=== PATIENT | male | born 1960 | race Two or more races ===

== ENCOUNTER 2017-04-14 15:54 | Inpatient (IN) | payer OTHER ==
[2017-04-14 16:11] VITALS: BMI 19.8
[2017-04-14] MEDS ORDERED: predniSONE 20 MG TABLET (UD) PO ONE (16:34)
[2017-04-14] MEDS ORDERED: ALBUTEROL SO4 2.5/IPRATROPIUM 0.5 INH SOL 3 ML VIAL.NEB. NEB ONE (16:41)
--- NOTE | 2017-04-14 16:46 | PDOC ---
History of Present Illness - General Chief Complaint: Shortness of Breath Stated Complaint: SOB, PCP SENT Time Seen by Provider: 04/14/17 16:23 History Source: Patient Exam Limitations: No Limitations - History of Present Illness Initial Comments: 04/14/17 16:40 Patient is a 56M with history of asthma and bowel resection here today complaining of shortness of breath for the past week, worsening especially in the past 2 days. He is also complaining of associated fevers, chills, nausea, wheezing and cough. He was sent in to be admitted by Dr Mcintyre for respiratory distress, with saturations reported in the low 80s and high 70s. He is also complaining of pleuritic chest pain. He reports that he is an active smoker, but refuses to say how much he smokes everyday. He denies history of blood clots , recent travel and leg pain. Past History - Past Medical History Allergies/Adverse Reactions: Allergies Allergy/AdvReac Type Severity Reaction Status Date / Time levofloxacin [From Levaquin] Allergy Verified 04/14/17 17:02 peanut Allergy Difficulty Verified 04/14/17 17:02 Breathing strawberry [[place]] Allergy Verified 04/14/17 17:02 Home Medications: Ambulatory Orders Montelukast Na [Singulair -] 10 mg PO HS 04/14/17 Anemia: No Asthma: Yes Cancer: No Cardiac Disorders: No CVA: No COPD: Yes CHF: No Dementia: No Diabetes: No GI Disorders: No Disorders: No HTN: No Hypercholesterolemia: No Liver Disease: No Seizures: No Thyroid Disease: No - Surgical History Abdominal Surgery: Yes ("10 FEET OF COLON REMOVED-UNSURE WHY") Appendectomy: Yes - Immunization History Immunization Up to Date: Yes - Suicide/Smoking/Psychosocial Hx Smoking Status: Yes Smoking History: Never smoked Have you smoked in the past 12 months: Yes Number of Cigarettes Smoked Daily: 0 Information on smoking cessation initiated: No 'Breaking Loose' booklet given: 01/12/14 Hx Alcohol Use: No Drug/Substance Use Hx: No Substance Use Type: Cocaine, Opiates Hx Substance Use Treatment: No Review of Systems - Review of Systems Comments:: 04/14/17 16:45 GENERAL/CONSTITUTIONAL: Positive for fevers, chills and weakness. HEAD, EYES, EARS, NOSE AND THROAT: No change in vision. No ear pain or discharge. No sore throat. CARDIOVASCULAR: Positive for chest pain and shortness of breath. RESPIRATORY: Positive for cough and wheezing. Negative for hemoptysis. GASTROINTESTINAL: Positive for nausea. Negative for vomiting, diarrhea or constipation. GENITOURINARY: No dysuria, frequency, or change in urination. SKIN: No rash NEUROLOGIC: Positive for headache. Negative for vertigo, loss of consciousness, or change in strength/sensation. ENDOCRINE: No increased thirst. No abnormal weight change HEMATOLOGIC/LYMPHATIC: No anemia, easy bleeding, or history of blood clots. ALLERGIC/IMMUNOLOGIC: No hives or skin allergy. *Physical Exam - Vital Signs Last Vital Signs Temp Pulse Resp BP Pulse Ox 100.9 F H 114 H 22 134/81 88 L 04/14/17 16:07 04/14/17 16:07 04/14/17 16:07 04/14/17 16:07 04/14/17 16:07 - Physical Exam Comments: 04/14/17 16:46 GENERAL: Awake, alert, and fully oriented, in moderate distress, smells of smoke HEAD: No signs of trauma, normocephalic, atraumatic EYES: PERRLA, EOMI, sclera anicteric, conjunctiva clear ENT: Auricles normal inspection, hearing grossly normal, nares patent, oropharynx clear without exudates. Moist mucosa NECK: Normal ROM, supple, no lymphadenopathy, JVD, or masses LUNGS: In moderate respiratory distress, diffuse wheezing in all lung celestin, wheezing audible without stethoscope, moving air in all lung celestin, tachypneic HEART: Tachycardic, normal rhythm, normal S1 and S2, no murmurs, rubs or gallops , peripheral pulses normal and equal bilaterally. ABDOMEN: Soft, nontender, normoactive bowel sounds. No guarding, no rebound. No masses EXTREMITIES: Normal inspection, Normal range of motion, no edema. No clubbing or cyanosis. NEUROLOGICAL: Cranial nerves II through XII grossly intact. Normal speech, no focal sensorimotor deficits SKIN: Warm, Dry, normal turgor, no rashes or lesions noted. ED Treatment Course - LABORATORY CBC & Chemistry Diagram: 04/14/17 17:00 04/14/17 17:00 - RADIOLOGY Radiology Studies Ordered: Category Date Time Status CHEST X-RAY PORTABLE* [RAD] Stat Radiology 04/14/17 16:33 Ordered Medical Decision Making - Medical Decision Making 04/14/17 16:48 Patient is a 56M with history of asthma and bowel resection here today with respiratory distress. Tachycardic, tachypneic, febrile. Vital signs otherwise stable. Septic workup initiated. Differential diagnosis includes, but is not limited to: COPD exacerbation, pneumonia, bronchitis. Will treat with fluids, ceftriaxone and azithromycin. 04/14/17 17:03 EKG shows sinus tachycardia with atrial enlargement and left anterior fascicular block. Rate = 109. QTc 436. No ST elevation, no contiguous t-wave inverions, no st depression. 04/14/17 17:34 Laboratory Tests 04/14/17 17:00 WBC 12.6 H Hgb 14.9 D Hct 44.7 D Plt Count 228 CBC shows leukocytosis. 04/14/17 18:09 Laboratory Tests 04/14/17 17:20 VBG pH 7.28 L POC VBG pCO2 71.5 H* VBG shows respiratory acidosis. 04/14/17 18:10 CXR shows no infiltrate, shows hyperinflated lungs. 04/14/17 18:13 Requiring 5L of O2 to maintain sat of 92%. Will admit to med/surg tele on Francisco Javier' s service. 04/14/17 18:[address] Mcintyre. Admitted to inpatient tele. *DC/Admit/Observation/Transfer Diagnosis at time of Disposition: COPD exacerbation - Discharge Dispostion Disposition: HOME Condition at time of disposition: Stable Admit: Yes
[2017-04-14] MEDS ORDERED: CEFTRIAXONE 1 GM in DEXTROSE 5%-WATER - 50 ML IVPB ONE (16:51)
[2017-04-14] MEDS ORDERED: AZITHROMYCIN IVPB 500 MG in DEXTROSE 5%-WATER - 250 ML IVPB ONE (16:51)
--- NOTE | 2017-04-14 16:53 | PDOC ---
Attending Attestation - Resident Resident Name: GersonhenryJuaqiun - ED Attending Attestation I have performed the following: I have examined & evaluated the patient, The case was reviewed & discussed with the resident, I agree w/resident's findings & plan, Exceptions are as noted - Medical Decision Making 04/14/17 16:50 A portion of this note was written by my scribe, under my supervision. Vital Signs Temp Pulse Resp BP Pulse Ox 100.9 F H 114 H 22 134/81 88 L 04/14/17 16:07 04/14/17 16:07 04/14/17 16:07 04/14/17 16:07 04/14/17 16:07 56-year-old male with past medical history of COPD sent in by patient's primary care physician for COPD exacerbation. Patient reports several days of fevers, productive cough and wheezing. Adult sepsis protocol initiated. We'll initiate nebs and steroids and antibiotics and admit the patient to hospital. Influenza swab pending. Chest x- ray <Tico Holland - Last Filed: 04/14/17 17:01> - HPI HPI: 04/14/17 16:55 56 yo M with asthma history sent in by his PCP for 1 week of progressively worsening SOB with associated fevers, chills, nausea, wheezing and cough. He was noted to be hypoxic today and was sent in for hospital admission. - Physicial Exam PE: 04/14/17 16:56 GENERAL: Awake, alert, and fully oriented. +Respiratory distress. HEAD: No signs of trauma EYES: PERRLA, EOMI, sclera anicteric, conjunctiva clear ENT: Auricles normal inspection, hearing grossly normal, nares patent, oropharynx clear without exudates. Moist mucosa NECK: Normal ROM, supple, no lymphadenopathy, JVD, or masses LUNGS: +Diffuse expiratory wheezing. HEART: Regular rate and rhythm, normal S1 and S2, no murmurs, rubs or gallops ABDOMEN: Soft, nontender, normoactive bowel sounds. No guarding, no rebound. No masses EXTREMITIES: Normal range of motion, no edema. No clubbing or cyanosis. No cords, erythema, or tenderness NEUROLOGICAL: Cranial nerves II through XII grossly intact. Normal speech, normal gait SKIN: Warm, Dry, normal turgor, no rashes or lesions noted. - Medical Decision Making 04/14/17 16:56 Documentation prepared by Caren Dye, acting as medical office representative for Tico Holland MD. <Caren Dye - Last Filed: 04/14/17 17:06> Heart Score/ECG Review #1 ECG reviewed & interpreted by me at: 17:00 04/14/17 17:02 Sinus tachycardia 109, left anterior fasiculcar block, QTC 436 msec, atrial enlargement <Tico Holland - Last Filed: 04/14/17 17:01>
[2017-04-14] MEDS ORDERED: AZITHROMYCIN IVPB 250 ML IVPB ONE (17:05)
[2017-04-14] MEDS ORDERED: CEFTRIAXONE 50 ML ONE (17:05)
[2017-04-14] MEDS ORDERED: predniSONE 20 MG TABLET (UD) ONE (17:05)
[2017-04-14 17:11] LABS: BASOPHIL 0.9 % (0-2.0); EOSINOPHIL 0.5 % (0-4.5); MCH 29.7 pg (25.7-33.7); MCHC 33.3 g/dl (32.0-35.9); MEAN CELL VOLUME 89.2 fl (80-96); MEAN PLT VOLUME 9.3 fl (7.5-11.1); NEUTROPHILS 75.9 % (42.8-82.8); PLATELET COUNT 228 K/MM3 (134-434); RDW 13.5 % (11.9-15.9); WHITE BLOOD COUNT 12.6 K/mm3 (4.0-10.0)
[2017-04-14] MEDS ORDERED: ACETAMINOPHEN 325 MG TABLET (FP) PO ONE (17:32)
[2017-04-14 17:37] LABS: VENOUS BLOOD GAS HCO3 32.7 meq/L (19-25); VENOUS PH 7.28 (7.32-7.42)
[2017-04-14 17:40] LABS: INR 1.28 (0.82-1.09); PROTHROMBIN TIME (PATIENT) 14.1 SEC (9.98-11.88)
[2017-04-14 17:43] LABS: ALK PHOS 89 U/L (45-117); ANION GAP 10 (8-16); BILIRUBIN,TOTAL 0.6 mg/dL (0.2-1.0); CALCIUM 8.9 mg/dL (8.5-10.1); CO2 30 mmol/L (21-32); CPK 160 IU/L (39-308); CREATININE 1.1 mg/dL (0.7-1.3); GLUCOSE,RANDOM 118 mg/dL (74-106); SGOT/AST 19 U/L (15-37); SGPT/ALT 26 U/L (12-78)
[2017-04-14 17:44] LABS: ACTIVATED PTT 32.9 SECONDS (26.9-34.4)
[2017-04-14 17:45] LABS: TROPONIN I < 0.02 ng/ml (0.00-0.05)
[2017-04-14] MEDS ORDERED: ACETAMINOPHEN 325 MG TABLET (FP) ONE (18:35)
[2017-04-14] MEDS ORDERED: ACETAMINOPHEN 325 MG TABLET (FP) PO PRN (22:31)
[2017-04-15] MEDS: ALBUTEROL SO4 0.083% IH SOL 2.5 MG/3 ML VIAL.NEB. NEB SCH ×5 (06:23→23:08)
[2017-04-15 07:24] LABS: MCH 29.4 pg (25.7-33.7); MCHC 32.9 g/dl (32.0-35.9); MEAN CELL VOLUME 89.2 fl (80-96); MEAN PLT VOLUME 9.4 fl (7.5-11.1); PLATELET COUNT 227 K/MM3 (134-434); RDW 13.2 % (11.9-15.9); WHITE BLOOD COUNT 11.7 K/mm3 (4.0-10.0)
[2017-04-15 07:31] LABS: ALBUMIN 2.5 g/dl (3.4-5.0); ANION GAP 8 (8-16); BILIRUBIN,TOTAL 0.8 mg/dL (0.2-1.0); CALCIUM 8.6 mg/dL (8.5-10.1); CO2 31 mmol/L (21-32); CREATININE 0.8 mg/dL (0.7-1.3); GLUCOSE,RANDOM 139 mg/dL (74-106); SGOT/AST 13 U/L (15-37); SGPT/ALT 21 U/L (12-78); TOT PROT 6.3 g/dl (6.4-8.2)
[2017-04-15 07:32] LABS: ALK PHOS 76 U/L (45-117)
[2017-04-15] MEDS ORDERED: DEXTROSE 5%-WATER - 50 ML IVPB ONE (09:03)
[2017-04-15] MEDS ORDERED: cefTRIAXone SODIUM 1 GM VIAL ONE (09:03)
[2017-04-15 09:32] LABS: URINE APPEARANCE CLEAR; URINE BILIRUBIN NEGATIVE (NEGATIVE); URINE BLOOD NEGATIVE (NEGATIVE); URINE COLOR DKYELLOW; URINE GLUCOSE (UA) NEGATIVE (NEGATIVE); URINE KETONE NEGATIVE (NEGATIVE); URINE LEUK ESTERASE NEGATIVE (NEGATIVE); URINE NITRITE NEGATIVE (NEGATIVE); URINE PROTEIN NEGATIVE (NEGATIVE)
--- NOTE | 2017-04-15 09:36 | EKG ---
Test Reason : Blood Pressure : / mmHG Vent. Rate : 109 BPM Atrial Rate : 109 BPM P-R Int : 126 ms QRS Dur : 088 ms QT Int : 324 ms P-R-T Axes : 073 -78 062 degrees QTc Int : 436 ms SINUS TACHYCARDIA BIATRIAL ENLARGEMENT LEFT ANTERIOR FASCICULAR BLOCK ABNORMAL ECG WHEN COMPARED WITH ECG OF 07-APR-2016 05:49, T WAVE VARIATION Confirmed by DINAH OMER MD ([id number]) on 04/15/2017 9:36:37 AM Referred By: Confirmed By:DINAH OMER MD
[2017-04-15] MEDS: predniSONE 20 MG TABLET (UD) PO SCH (09:54)
[2017-04-15] MEDS: AZITHROMYCIN 250 MG TABLET PO SCH (09:54)
[2017-04-15] MEDS: CEFTRIAXONE 1 GM in DEXTROSE 5%-WATER - 50 ML IVPB SCH (09:54)
[2017-04-15] MEDS: BUDESONIDE/FORMETEROL FUMARATE 160/4.5 mcg INHALER IH SCH ×2 (09:54→22:28)
--- NOTE | 2017-04-15 11:07 | HP ---
DATE OF ADMISSION: DATE OF DICTATION: 04/15/2017 HISTORY OF PRESENT ILLNESS: This is a 56-year-old male known to have bronchial asthma, COPD, he is also a smoker, who came to my office yesterday with complaints of short of breath and respiratory distress. O2 saturation in the office was 84. So, he was sent to the emergency room for evaluation and admission. In the emergency room, he got nebulizer treatment and IV antibiotics and steroids. He felt better. This morning, he is doing good. He has had several admissions in the past. SOCIAL HISTORY: He is an [employer] service [employer] member. He lives alone. His family is in [place]. PHYSICAL EXAMINATION: Vital signs: Blood pressure is 110/70, pulse 70, respirations 24, temperature 98. HEENT: Unremarkable. Neck: supple. Lungs: Bilateral wheezes present. Heart: S1, S2 normal. No S3, S4. Abdomen: Soft. Extremities: Legs no edema. Neurologic: Grossly normal. LABORATORY REPORTS: Sodium 139, potassium 4.9, chloride 100, BUN 25, creatinine 0.8. LFTs are normal. Hematology: WBC 12.6, hemoglobin 14.9. Urinalysis pending. Chest x-ray no infiltrate. IMPRESSION: Acute exacerbation of bronchial asthma, chronic obstructive pulmonary disease. PLAN: Continue IV antibiotics and IV steroids. Pulmonary consult. Will follow. Elizabeth [id number]
--- NOTE | 2017-04-15 13:04 | CONSULT ---
Consultation: PULMONARY CONSULT HISTORY OF PRESENT ILLNESS: Mr. Milligan is a 56yo M with a stated hx of asthma who presents with shortness of breath with productive cough for a few days. States that this past week he had signs/symptoms of viral URI (nasal congestion, runny nose, watery eyes) and was around sick contacts. This lead to gradual onset shortness of breath and productive cough with yellow phlegm. States he uses his albuterol two times daily. Also uses symbicort and singulair. Pt denied CP, headache, diarrhea, dysuria. Endorses prior smoking history but would not quantify. 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 REVIEW OF SYSTEMS: CONSTITUTIONAL: Absent: fever, chills, diaphoresis, generalized weakness, malaise, loss of appetite, weight change HEENT: Absent: rhinorrhea, nasal congestion, throat pain, throat swelling, difficulty swallowing, mouth swelling, ear pain, eye pain, visual changes CARDIOVASCULAR: Absent: chest pain, syncope, palpitations, irregular heart rate, lightheadedness , peripheral edema RESPIRATORY: Absent: cough, shortness of breath, dyspnea with exertion, orthopnea, wheezing, stridor, hemoptysis GASTROINTESTINAL: Absent: abdominal pain, abdominal distension, nausea, vomiting, diarrhea, constipation, melena, hematochezia GENITOURINARY: Absent: dysuria, frequency, urgency, hesitancy, hematuria, flank pain, genital pain MUSCULOSKELETAL: Absent: myalgia, arthralgia, joint swelling, back pain, neck pain SKIN: Absent: rash, itching, pallor HEMATOLOGIC/IMMUNOLOGIC: Absent: easy bleeding, easy bruising, lymphadenopathy, frequent infections ENDOCRINE: Absent: unexplained weight gain, unexplained weight loss, heat intolerance, cold intolerance NEUROLOGIC: Absent: headache, focal weakness or paresthesias, dizziness, unsteady gait, seizure, mental status changes, bladder or bowel incontinence PSYCHIATRIC: Absent: anxiety, depression, suicidal or homicidal ideation, hallucinations. PHYSICAL EXAMINATION Vital Signs Temperature 98.7 F 04/15/17 10:00 Pulse Rate 74 04/15/17 10:35 Respiratory Rate 20 04/15/17 10:00 Blood Pressure 136/68 04/15/17 10:00 O2 Sat by Pulse Oximetry (%) 92 L 04/15/17 10:35 GEN: AAOx3, NAD, Walking comfortably HEENT: Anisocoria, (pt states related to ?metal in one eye), R eye reactive to light, +cervical LAD CV: S1, S2, RRR LUNG: Diffuse coarse inspiratory and expiratory wheezing ABD: Soft, NT, ND MSK: No edema, no erythema NEURO: CN 2-12 intact, no sensation deficits, no MSK deficits Laboratory Results - last 24 hr 04/15/17 04/15/17 04/15/17 05:30 05:30 06:45 WBC 11.7 H RBC 4.70 Hgb 13.8 Hct 41.9 MCV 89.2 MCH 29.4 MCHC 32.9 RDW 13.2 Plt Count 227 MPV 9.4 Sodium 139 Potassium 4.9 Chloride 100 Carbon Dioxide 31 Anion Gap 8 BUN 25 H D Creatinine 0.8 D Creat Clearance w eGFR > 60 Random Glucose 139 H Calcium 8.6 Total Bilirubin 0.8 D AST 13 L D ALT 21 Alkaline Phosphatase 76 Total Protein 6.3 L Albumin 2.5 L Urine Color Dkyellow Urine Appearance Clear Urine pH 5.0 Ur Specific [place] 1.025 Urine Protein Negative Urine Glucose (UA) Negative Urine Ketones Negative Urine Blood Negative Urine Nitrite Negative Urine Bilirubin Negative Urine Urobilinogen 2.0 Active Medications Generic Name Dose Route Start Last Admin Trade Name Freq PRN Reason Stop Dose Admin Acetaminophen 650 mg 04/14/17 22:31 Tylenol - PO Q6H PRN FEVER OR PAIN Albuterol Sulfate 1 amp 04/15/17 00:00 04/15/17 11:05 Ventolin 0.083% Nebulizer Soln - NEB 1 amp QIDR JACOB Administration Azithromycin 250 mg 04/15/17 10:00 04/15/17 09:54 Zithromax - PO 04/18/17 10:01 250 mg DAILY JACOB Administration Budesonide/Formoterol Fumarate 2 puff 04/15/17 10:00 04/15/17 09:54 Symbicort 160/4.5mcg - IH 2 puff BID JACOB Administration Ceftriaxone Sodium 1 gm/ 50 mls @ 100 mls/hr 04/15/17 10:00 04/15/17 09:54 Dextrose IVPB 100 mls/hr DAILY JACOB Administration Montelukast Sodium 10 mg 04/15/17 22:00 Singulair - PO HS JACOB Prednisone 40 mg 04/15/17 10:00 04/15/17 09:54 Deltasone - PO 04/17/17 10:01 40 mg DAILY JACOB Administration Prednisone 30 mg 04/18/17 10:00 Deltasone - PO 04/20/17 10:01 DAILY JACOB Prednisone 20 mg 04/21/17 10:00 Deltasone - PO 04/22/17 10:01 DAILY JACOB Prednisone 10 mg 04/23/17 10:00 Deltasone - PO 04/24/17 10:01 DAILY JACOB ASSESSMENT/PLAN: 56yo M with PMHx of Asthma presents with productive cough, SOB, and wheezing after viral URI, admitted for asthma exacerbation. # Asthma/COPD Exacerbation - 2/2 viral URI - Continue steroid taper - Continue home Symbicort (ICS/LABA) + Singulair - Continue nebs PRN - Continue O2 as needed to keep SpO2 >90% - Daily peak flow - CT noncon to evaluate findings from 2013 - PFTs as outpatient # +SIRS - unknown source - No obvious infiltrate on CXR, lobar PNA unlikely - +SIRS could be 2/2 viral infection - F/u CT chest noncon - F/u blood culture Rest as per Primary. Discussed with Dr. Crowell. Will continue to follow. Skyler Cortez MD - PGY1 Visit type - Emergency Visit Emergency Visit: No - New Patient This patient is new to me today: Yes Date on this admission: 04/15/17 - Critical Care Critical Care patient: No
--- NOTE | 2017-04-15 13:32 | PN ---
Teaching Attending Note Name of Resident: Skyler Cortez ATTENDING PHYSICIAN STATEMENT I saw and evaluated the patient. I reviewed the resident's note and discussed the case with the resident. I agree with the resident's findings and plan as documented. ASSESSMENT AND PLAN: Acute on Chronic Hypoxic and Hypercapneic Respiratory Failure Acute COPD/Asthma Exacerbation Bronchiectasis Former Smoker - started on prednisone - would obtain CT chest noncontrast to evaluate findings from 2013 - inhaled bronchodilators standing and PRN - O2 to keep SpO2 >90% - singulair - outpt PFTs - will likely need home O2 upon discharge but pt refusing Thank you for this consult Chuckie Crowell MD
[2017-04-15] MEDS ORDERED: PT OWN MED DRAWER 7, Y5N ONE (21:40)
[2017-04-15] MEDS: MONTELUKAST NA 10 MG TABLET PO SCH (22:28)
[2017-04-16] MEDS: ALBUTEROL SO4 0.083% IH SOL 2.5 MG/3 ML VIAL.NEB. NEB SCH ×3 (06:40→18:10)
--- NOTE | 2017-04-16 09:08 | PN ---
Progress Note, Physician Chief Complaint: Feels better History of Present Illness: Admitted with exacerbation of bronchial asthma Feels better ,CT of chest done result pending - Current Medication List Current Medications: Active Medications Acetaminophen (Tylenol -) 650 mg PO Q6H PRN PRN Reason: FEVER OR PAIN Albuterol Sulfate (Ventolin 0.083% Nebulizer Soln -) 1 amp NEB QIDR [facility] Last Admin: 04/16/17 06:40 Dose: 1 amp Azithromycin (Zithromax -) 250 mg PO DAILY [facility] Stop: 04/18/17 10:01 Last Admin: 04/15/17 09:54 Dose: 250 mg Budesonide/Formoterol Fumarate (Symbicort 160/4.5mcg -) 2 puff IH BID [facility] Last Admin: 04/15/17 22:28 Dose: 2 puff Ceftriaxone Sodium 1 gm/ (Dextrose) 50 mls @ 100 mls/hr IVPB DAILY [facility] Last Admin: 04/15/17 09:54 Dose: 100 mls/hr Montelukast Sodium (Singulair -) 10 mg PO HS [facility] Last Admin: 04/15/17 22:28 Dose: 10 mg Prednisone (Deltasone -) 40 mg PO DAILY [facility] Stop: 04/17/17 10:01 Last Admin: 04/15/17 09:54 Dose: 40 mg Prednisone (Deltasone -) 30 mg PO DAILY [facility] Stop: 04/20/17 10:01 Prednisone (Deltasone -) 20 mg PO DAILY [facility] Stop: 04/22/17 10:01 Prednisone (Deltasone -) 10 mg PO DAILY [facility] Stop: 04/24/17 10:01 - Objective Vital Signs: Vital Signs Temperature 97.9 F 04/16/17 06:00 Pulse Rate 69 04/16/17 06:00 Respiratory Rate 18 04/16/17 06:00 Blood Pressure 113/65 04/16/17 06:00 O2 Sat by Pulse Oximetry (%) 90 L 04/15/17 21:58 Constitutional: Yes: Calm Eyes: Yes: WNL HENT: Yes: WNL Neck: Yes: WNL Cardiovascular: Yes: WNL Respiratory: Yes: Wheezes Gastrointestinal: Yes: WNL ...Rectal Exam: Yes: Deferred Genitourinary: Yes: WNL Musculoskeletal: Yes: WNL Extremities: Yes: WNL Edema: No Integumentary: Yes: WNL Neurological: Yes: Alert ...Motor Strength: WNL Psychiatric: Yes: Alert Labs: CBC, BMP 04/15/17 05:30 04/15/17 05:30 INR, PTT INR 1.28 (0.82-1.09) H 04/14/17 17:00 - ....Imaging Cat Scan: Pending Assessment/Plan Continue same trt
[2017-04-16] MEDS ORDERED: DEXTROSE 5%-WATER - 50 ML IVPB ONE (09:33)
[2017-04-16] MEDS ORDERED: cefTRIAXone SODIUM 1 GM VIAL ONE (09:33)
--- NOTE | 2017-04-16 09:42 | PN ---
Physical Exam: PULMONARY CONSULT SUBJECTIVE: Patient seen and examined. States he feels much better than yesterday. Less SOB, less chest tightness. Wants to return to work soon. Denies CP, fevers, chills. OBJECTIVE: Vital Signs Period Temp Pulse Resp BP Sys/[place] Pulse Ox Last 24 Hr 97.9 F-98.7 F 69-87 18-20 113-142/54-81 90-94 GEN: AAOx3, NAD, Distant affect HEENT: Anisocoria, (pt states related to ?metal in one eye), R eye reactive to light, +cervical LAD CV: S1, S2, RRR LUNG: Inspiratory and expiratory fine wheezes ABD: Soft, NT, ND MSK: No edema, no erythema NEURO: CN 2-12 intact, no sensation deficits, no MSK deficits Laboratory Last Values WBC 11.7 K/mm3 (4.0-10.0) H 04/15/17 05:30 RBC 4.70 M/mm3 (4.00-5.60) 04/15/17 05:30 Hgb 13.8 GM/dL (11.7-16.9) 04/15/17 05:30 Hct 41.9 % (35.4-49) 04/15/17 05:30 MCV 89.2 fl (80-96) 04/15/17 05:30 MCH 29.4 pg (25.7-33.7) 04/15/17 05:30 MCHC 32.9 g/dl (32.0-35.9) 04/15/17 05:30 RDW 13.2 % (11.9-15.9) 04/15/17 05:30 Plt Count 227 K/MM3 (134-434) 04/15/17 05:30 MPV 9.4 fl (7.5-11.1) 04/15/17 05:30 Neutrophils % 75.9 % (42.8-82.8) 04/14/17 17:00 Lymphocytes % 12.3 % (8-40) D 04/14/17 17:00 Monocytes % 10.4 % (3.8-10.2) H 04/14/17 17:00 Eosinophils % 0.5 % (0-4.5) D 04/14/17 17:00 Basophils % 0.9 % (0-2.0) 04/14/17 17:00 PT with INR 14.10 SEC (9.98-11.88) H 04/14/17 17:00 INR 1.28 (0.82-1.09) H 04/14/17 17:00 PTT (Actin FS) 32.9 SECONDS (26.9-34.4) 04/14/17 17:00 VBG pH 7.28 (7.32-7.42) L 04/14/17 17:20 POC VBG pCO2 71.5 mmHg (38-52) H* 04/14/17 17:20 POC VBG pO2 31.5 mmHg (28-48) 04/14/17 17:20 Mixed VBG HCO3 32.7 meq/L (19-25) H 04/14/17 17:20 Sodium 139 mmol/L (136-145) 04/15/17 05:30 Potassium 4.9 mmol/L (3.5-5.1) 04/15/17 05:30 Chloride 100 mmol/L (98-107) 04/15/17 05:30 Carbon Dioxide 31 mmol/L (21-32) 04/15/17 05:30 Anion Gap 8 (8-16) 04/15/17 05:30 BUN 25 mg/dL (7-18) H D 04/15/17 05:30 Creatinine 0.8 mg/dL (0.7-1.3) D 04/15/17 05:30 Creat Clearance w eGFR > 60 (>60) 04/15/17 05:30 Random Glucose 139 mg/dL (74-106) H 04/15/17 05:30 Lactic Acid 1.4 mmol/L (0.4-2.0) 04/14/17 17:00 Calcium 8.6 mg/dL (8.5-10.1) 04/15/17 05:30 Total Bilirubin 0.8 mg/dL (0.2-1.0) D 04/15/17 05:30 AST 13 U/L (15-37) L D 04/15/17 05:30 ALT 21 U/L (12-78) 04/15/17 05:30 Alkaline Phosphatase 76 U/L (45-117) 04/15/17 05:30 Creatine Kinase 160 IU/L (39-308) 04/14/17 17:00 Creatine Kinase Index 1.3 % (0.0-5.0) 04/14/17 17:00 CK-MB (CK-2) 2.209 ng/mL (0.5-3.6) 04/14/17 17:00 Troponin I < 0.02 ng/ml (0.00-0.05) 04/14/17 17:00 Total Protein 6.3 g/dl (6.4-8.2) L 04/15/17 05:30 Albumin 2.5 g/dl (3.4-5.0) L 04/15/17 05:30 Urine Color Dkyellow 04/15/17 06:45 Urine Appearance Clear 04/15/17 06:45 Urine pH 5.0 (5.0-8.0) 04/15/17 06:45 Ur Specific [place] 1.025 (1.005-1.025) 04/15/17 06:45 Urine Protein Negative (NEGATIVE) 04/15/17 06:45 Urine Glucose (UA) Negative (NEGATIVE) 04/15/17 06:45 Urine Ketones Negative (NEGATIVE) 04/15/17 06:45 Urine Blood Negative (NEGATIVE) 04/15/17 06:45 Urine Nitrite Negative (NEGATIVE) 04/15/17 06:45 Urine Bilirubin Negative (NEGATIVE) 04/15/17 06:45 Urine Urobilinogen 2.0 mg/dL (0.2-1.0) 04/15/17 06:45 Blood Type B POSITIVE 04/14/17 17:00 Antibody Screen Negative 04/14/17 17:00 Active Medications Generic Name Dose Route Start Last Admin Trade Name Freq PRN Reason Stop Dose Admin Acetaminophen 650 mg 04/14/17 22:31 Tylenol - PO Q6H PRN FEVER OR PAIN Albuterol Sulfate 1 amp 04/15/17 00:00 04/16/17 11:23 Ventolin 0.083% Nebulizer Soln - NEB 1 amp QIDR JACOB Administration Azithromycin 250 mg 04/15/17 10:00 04/16/17 09:47 Zithromax - PO 04/18/17 10:01 250 mg DAILY JACOB Administration Budesonide/Formoterol Fumarate 2 puff 04/15/17 10:00 04/16/17 09:55 Symbicort 160/4.5mcg - IH 2 puff BID JACOB Administration Ceftriaxone Sodium 1 gm/ 50 mls @ 100 mls/hr 04/15/17 10:00 04/16/17 09:47 Dextrose IVPB 100 mls/hr DAILY JACOB Administration Methylprednisolone Sodium Succinate 40 mg 04/16/17 13:00 04/16/17 13:43 Solu-Medrol - IVPB 40 mg Q6H-IV JACOB Administration Montelukast Sodium 10 mg 04/15/17 22:00 04/15/17 22:28 Singulair - PO 10 mg HS JACOB Administration ASSESSMENT/PLAN: 56yo M with PMHx of Asthma presents with productive cough, SOB, and wheezing after viral URI, admitted for asthma exacerbation. # Asthma/COPD Exacerbation - 2/2 viral URI, mild improvement - Change to IV steroids since pt still symptomatic - CT chest shows chronic lung disease (scarring, fibrosis, bronchiectasis) - Obtain pre/post O2 tmrw to assess need for home O2 - ABG tmrw to evaluate improvement of hypercapnea - Continue home Symbicort (ICS/LABA) + Singulair + Nebs PRN - PFTs as outpatient Rest as per Primary. Discussed w/ Dr Vargas. Will continue to follow. Skyler Cortez MD - PGY1 Visit type - Emergency Visit Emergency Visit: No - New Patient This patient is new to me today: No - Critical Care Critical Care patient: No - Discharge Referral Referred to [facility] No
[2017-04-16] MEDS: AZITHROMYCIN 250 MG TABLET PO SCH (09:47)
[2017-04-16] MEDS: CEFTRIAXONE 1 GM in DEXTROSE 5%-WATER - 50 ML IVPB SCH (09:47)
[2017-04-16] MEDS: predniSONE 20 MG TABLET (UD) PO SCH (09:47)
[2017-04-16] MEDS: BUDESONIDE/FORMETEROL FUMARATE 160/4.5 mcg INHALER IH SCH ×2 (09:55→21:13)
--- NOTE | 2017-04-16 12:15 | PN ---
Teaching Attending Note Name of Resident: Skyler Cortez ATTENDING PHYSICIAN STATEMENT I saw and evaluated the patient. I reviewed the resident's note and discussed the case with the resident. I agree with the resident's findings and plan as documented. PULMONARY ALERT,LESS DYSPNEIC,REMAINS HYPOXIC ON RA SAT 85% Acute on Chronic Hypoxic and Hypercapneic Respiratory Failure Acute COPD/Asthma Exacerbation Bronchiectasis Former Smoker - steroids - inhaled bronchodilators standing and PRN - O2 to keep SpO2 >90% - singulair - outpt PFTs - will likely need home O2 - smoking cessation - f/u abg DR AYON Problem List - Problems (1) COPD exacerbation Code(s): J44.1 - CHRONIC OBSTRUCTIVE PULMONARY DISEASE W (ACUTE) EXACERBATION (2) Bronchiectasis Code(s): J47.9 - BRONCHIECTASIS, UNCOMPLICATED (3) COPD (chronic obstructive pulmonary disease) Code(s): J44.9 - CHRONIC OBSTRUCTIVE PULMONARY DISEASE, UNSPECIFIED (4) Respiratory distress Code(s): R06.00 - DYSPNEA, UNSPECIFIED (5) Acute on chronic respiratory failure with hypoxia and hypercapnia Code(s): J96.21 - ACUTE AND CHRONIC RESPIRATORY FAILURE WITH HYPOXIA J96.22 - ACUTE AND CHRONIC RESPIRATORY FAILURE WITH HYPERCAPNIA
[2017-04-16] MEDS: methylPREDNISolone NA SUCC 40 MG/1 ML VIAL IVPB SCH ×2 (13:43→21:14)
[2017-04-16] MEDS ORDERED: PT OWN MED DRAWER 7, Y5N ONE ×2 (18:30→21:07)
[2017-04-16] MEDS: MONTELUKAST NA 10 MG TABLET PO SCH (21:12)
[2017-04-17] MEDS: ALBUTEROL SO4 0.083% IH SOL 2.5 MG/3 ML VIAL.NEB. NEB SCH ×2 (00:05→06:50)
[2017-04-17] MEDS: methylPREDNISolone NA SUCC 40 MG/1 ML VIAL IVPB SCH ×2 (02:25→08:54)
[2017-04-17 06:06] VITALS: BP 146/82; PULSE 78; TEMP 98.5
[2017-04-17] MEDS ORDERED: DEXTROSE 5%-WATER - 50 ML IVPB ONE (08:32)
[2017-04-17] MEDS ORDERED: cefTRIAXone SODIUM 1 GM VIAL ONE (08:32)
--- NOTE | 2017-04-17 08:59 | PN ---
Progress Note, Physician Chief Complaint: Feels better History of Present Illness: Chest CT showed pulmonary fibrosis ,case discussed with Radiologist ,no acute changes - Current Medication List Current Medications: Active Medications Acetaminophen (Tylenol -) 650 mg PO Q6H PRN PRN Reason: FEVER OR PAIN Albuterol Sulfate (Ventolin 0.083% Nebulizer Soln -) 1 amp NEB QIDR [facility] Last Admin: 04/17/17 06:50 Dose: Not Given Azithromycin (Zithromax -) 250 mg PO DAILY [facility] Stop: 04/18/17 10:01 Last Admin: 04/16/17 09:47 Dose: 250 mg Budesonide/Formoterol Fumarate (Symbicort 160/4.5mcg -) 2 puff IH BID [facility] Last Admin: 04/16/17 21:13 Dose: 2 puff Ceftriaxone Sodium 1 gm/ (Dextrose) 50 mls @ 100 mls/hr IVPB DAILY [facility] Last Admin: 04/16/17 09:47 Dose: 100 mls/hr Methylprednisolone Sodium Succinate (Solu-Medrol -) 40 mg IVPB Q6H-IV [facility] Last Admin: 04/17/17 02:25 Dose: 40 mg Montelukast Sodium (Singulair -) 10 mg PO HS [facility] Last Admin: 04/16/17 21:12 Dose: 10 mg - Objective Vital Signs: Vital Signs Temperature 98.5 F 04/17/17 06:00 Pulse Rate 78 04/17/17 06:00 Respiratory Rate 18 04/17/17 06:00 Blood Pressure 146/82 04/17/17 06:00 O2 Sat by Pulse Oximetry (%) 93 L 04/16/17 20:39 Constitutional: Yes: No Distress Eyes: Yes: WNL HENT: Yes: WNL Neck: Yes: WNL Cardiovascular: Yes: WNL Respiratory: Yes: SOB on Exertion Gastrointestinal: Yes: WNL ...Rectal Exam: Yes: WNL Genitourinary: Yes: WNL Extremities: Yes: WNL Edema: No Neurological: Yes: Alert Labs: CBC, BMP 04/15/17 05:30 04/15/17 05:30 INR, PTT INR 1.28 (0.82-1.09) H 04/14/17 17:00 Assessment/Plan DC home
--- NOTE | 2017-04-17 09:00 | DS ---
Physical Examination Vital Signs: Vital Signs Temperature 98.5 F 04/17/17 06:00 Pulse Rate 78 04/17/17 06:00 Respiratory Rate 18 04/17/17 06:00 Blood Pressure 146/82 04/17/17 06:00 O2 Sat by Pulse Oximetry (%) 93 L 04/16/17 20:39 Constitutional: Yes: No Distress Eyes: Yes: WNL HENT: Yes: WNL Neck: Yes: WNL Cardiovascular: Yes: WNL Respiratory: Yes: SOB on Exertion Gastrointestinal: Yes: WNL ...Rectal Exam: Yes: Deferred Renal/: Yes: WNL Extremities: Yes: WNL Peripheral Pulses WNL: Yes Neurological: Yes: Alert ...Motor Strength: WNL Psychiatric: Yes: WNL Labs: CBC, BMP 04/15/17 05:30 04/15/17 05:30 Discharge Summary Reason For Visit: OBSTUCTIVE CHRONIC BRONCHITIS WITH EXACERBATION Current Active Problems Acute on chronic respiratory failure with hypoxia and hypercapnia (Acute) COPD exacerbation (Acute) Condition: Stable - Instructions Referrals: Jennifer Mcintyre MD [Primary Care Provider] - - Home Medications Comprehensive Discharge Medication List: Ambulatory Orders Albuterol Sulfate Inhaler - [Ventolin Hfa Inhaler -] 1 - 2 inh PO Q4H 04/14/17 Budesonide/Formeterol Fumarate [SYMBICORT 160/4.5mcg -] 2 puff PO BID 04/14/17 Montelukast Na [Singulair -] 10 mg PO DAILY 04/14/17
[2017-04-17] MEDS: BUDESONIDE/FORMETEROL FUMARATE 160/4.5 mcg INHALER IH SCH (09:15)
[2017-04-17] MEDS: CEFTRIAXONE 1 GM in DEXTROSE 5%-WATER - 50 ML IVPB SCH (09:15)
[2017-04-17] MEDS: AZITHROMYCIN 250 MG TABLET PO SCH (09:31)
[2017-04-18] MEDS ORDERED: predniSONE 10 MG TABLET (UD) PO SCH (10:00)
[2017-04-21] MEDS ORDERED: predniSONE 20 MG TABLET (UD) PO SCH (10:00)
[2017-04-23] MEDS ORDERED: predniSONE 10 MG TABLET (UD) PO SCH (10:00)
== END 2017-04-17 09:35 | disposition home or self-care (01) | DRG 140 ==
LOC: JER 15:54 → JERBED 18:35 → J4S 21:14
PROVIDERS: ADMIT Internal Medicine; ATTEND Internal Medicine
DX: J44.1 Chronic obstructive pulmonary disease with (acute) exacerbation (principal); J96.22 Acute and chronic respiratory failure with hypercapnia; J96.21 Acute and chronic respiratory failure with hypoxia; J06.9 Acute upper respiratory infection, unspecified; E87.2 Acidosis; R65.10 Systemic inflammatory response syndrome (SIRS) of non-infectious origin without acute organ dysfunction
CPT/HCPCS: 36415; 71010-TC; 71250-TC; 80053; 81003; 82553; 82803; 83605; 84484; 85025; 85027; 85610; 85730; 86850; 86900; 86901; 87040; 87086; 87186; 87804; 93005; 93010; 94150; 94640; 99285-25